=== PATIENT | female | born 1950 | race Two or more races ===

== ENCOUNTER 2023-07-22 05:46 | Emergency (ER) | payer OTHER, BC ==
[2023-07-22 05:52] VITALS: TEMP 97.8; BMI 26.5
[2023-07-22 08:30] LABS: POTASSIUM 3.9 mmol/L (3.5-5.1)
[2023-07-22 08:32] LABS: CALCIUM 9.6 mg/dL (8.5-10.1)
[2023-07-22 08:33] LABS: BLOOD UREA NITROGEN 13.1 mg/dL (7-18); MAGNESIUM 2.5 mg/dL (1.8-2.4)
[2023-07-22 08:36] LABS: BASO % 0.4 % (0-2.0); CREATININE 0.8 mg/dL (0.55-1.3); EOS % 5.6 % (0-4.5); HEMATOCRIT 38.3 % (32.4-45.2); LYMPH % 31.2 % (8-40); MCH 29.2 pg (25.7-33.7); MCHC 33.9 g/dl (32.0-36.0); MEAN CELL VOLUME 85.9 fl (80-96); MONO % 6.5 % (3.8-10.2); NEUT % 56.3 % (42.8-82.8); PLATELET COUNT 218 10^3/uL (134-434); RBC 4.46 M/mm3 (3.60-5.2); WHITE BLOOD COUNT 4.6 K/mm3 (4.0-10.0)
[2023-07-22 08:37] LABS: INR 0.97 (0.83-1.09)
[2023-07-22 08:38] LABS: BILIRUBIN,TOTAL 0.5 mg/dL (0.2-1); TOT PROT 7.7 g/dl (6.4-8.2)
[2023-07-22 08:40] LABS: ACTIVATED PTT 32.4 SECONDS (25.2-36.5)
[2023-07-22 09:58] VITALS: BP 134/59; PULSE 69; RESP 20
== END 2023-07-22 10:59 | disposition home or self-care (01) ==
LOC: JER 05:46
DX: R07.9 Chest pain, unspecified (principal)
CPT/HCPCS: 36415; 71046-TC-FY; 80053; 83735; 84484; 85025; 85610; 85730; 93005; 93010; 99285-25

== ENCOUNTER 2023-10-26 12:49 | Emergency (ER) | payer OTHER, BC ==
[2023-10-26 13:02] VITALS: BP 159/68; PULSE 86; RESP 19; TEMP 98.5; BMI 27.1
[2023-10-26] MEDS ORDERED: METHOCARBAMOL 500 MG TABLET ONE (14:37)
[2023-10-26] MEDS ORDERED: ACETAMINOPHEN 500 MG TABLET (FP) ONE (14:37)
[2023-10-26] MEDS ORDERED: DEXAMETHASONE SOD PHOSPHATE 10 MG/1 ML VIAL ONE (14:37)
[2023-10-26] MEDS: ACETAMINOPHEN 500 MG TABLET (FP) PO ONE (14:45)
[2023-10-26] MEDS: DEXAMETHASONE SOD PHOSPHATE 10 MG/1 ML VIAL PO ONE (14:45)
[2023-10-26] MEDS: METHOCARBAMOL 500 MG TABLET PO ONE (14:45)
== END 2023-10-26 16:46 | disposition home or self-care (01) ==
LOC: JERFT 12:49
DX: M75.31 Calcific tendinitis of right shoulder (principal)
CPT/HCPCS: 73030-TC-RT-FY; 99283-25; J1100